=== PATIENT | male | born 2000 | race Caucasian/White ===

== ENCOUNTER 2023-04-01 14:54 | Emergency (ER) | payer SELFPAY ==
[~2023-04-01] VITALS: Ht 177.8 cm; Wt 79.4 kg
== END 2023-04-01 17:47 | disposition home or self-care (01) ==
LOC: ED 14:54
DX: S01.91XA Laceration without foreign body of unspecified part of head, initial encounter (principal); V86.95XA Unspecified occupant of 3- or 4- wheeled all-terrain vehicle (ATV) injured in nontraffic accident, initial encounter; Y93.39 Activity, other involving climbing, rappelling and jumping off; Y92.89 Other specified places as the place of occurrence of the external cause; Y99.8 Other external cause status